=== PATIENT | female | born 2000 | race African-American/Black ===

== ENCOUNTER 2021-06-24 09:39 | Emergency (ER) | payer OTHER ==
[2021-06-24 10:27] LABS: Bilirubin Neg (Negative); Blood, Urine 250 (Negative); Glucose, Urine (Dipstick) Normal (Negative); Ketone, Urine Negative (Negative); Protein, Urine (Dipstick) 100 mg/dl (Neg-Trace); Urobilinogen Normal mg/dL (Less than 2)
[2021-06-24 10:29] LABS: Clarity Cloudy (Clear); Leukocyte Unable to Interpret (Negative); Nitrite Unable to Interpret (Negative)
[2021-06-24 10:32] LABS: Pregnancy Test - Urine (BHCG) Negative (Negative); Pregu Control Background? CLEAR/WHITE (CLR/WHITE); Pregu Control Bar Appear? YES (CONTROL BAR)
[2021-06-24 10:34] LABS: Bacteria/HPF Rare-Few HPF (None Seen); RBC/HPF Greater than 50 HPF (0-3); Squamous Epithelial 0-3 HPF (0-3); WBC/HPF 0-3 HPF (0-3)
[2021-06-26 03:23] LABS: Chlamydia by PCR Not Detected (NotDetected); GC by PCR Not Detected (NotDetected)
== END 2021-06-24 14:30 | disposition home or self-care (01) ==
LOC: CSHERS 09:39
DX: N76.0 Acute vaginitis (principal); B96.89 Other specified bacterial agents as the cause of diseases classified elsewhere; N92.0 Excessive and frequent menstruation with regular cycle; N94.6 Dysmenorrhea, unspecified
CPT/HCPCS: 76856; 81003; 81015; 81025; 87480; 87491; 87510; 87591; 87660

== ENCOUNTER 2021-07-07 20:12 | Emergency (ER) | payer OTHER ==
[2021-07-07 20:58] LABS: Bilirubin Neg (Negative); Blood, Urine Negative (Negative); Clarity Clear (Clear); Glucose, Urine (Dipstick) Normal (Negative); Ketone, Urine Negative (Negative); Leukocyte 500 (Negative); Nitrite Negative (Negative); Protein, Urine (Dipstick) Negative (Neg-Trace); Urobilinogen Normal mg/dL (Less than 2)
[2021-07-07 20:59] LABS: Pregnancy Test - Urine (BHCG) Negative (Negative); Pregu Control Background? CLEAR/WHITE (CLR/WHITE); Pregu Control Bar Appear? YES (CONTROL BAR)
[2021-07-07 21:06] LABS: Bacteria/HPF 3+ HPF (None Seen); RBC/HPF None Seen HPF (0-3); WBC/HPF 0-3 HPF (0-3); Yeast-Budding Rare HPF (None Seen)
[2021-07-07 21:07] LABS: Mucous/LPF 1+ LPF (<2+); Yeast-Hyphae 1+ HPF (None Seen)
== END 2021-07-07 21:22 | disposition home or self-care (01) ==
LOC: CSHERS 20:12
DX: B37.3 Candidiasis of vulva and vagina (principal); D64.9 Anemia, unspecified
CPT/HCPCS: 81003; 81015; 81025; 99284

== ENCOUNTER 2021-08-06 17:02 | Emergency (ER) | payer OTHER ==
[2021-08-07 17:14] LABS: SARS-CoV-2 PCR by NAA Not Detected (NotDetected)
== END 2021-08-06 20:18 | disposition home or self-care (01) ==
LOC: CSHERS 17:02
DX: J10.1 Influenza due to other identified influenza virus with other respiratory manifestations (principal); Z20.822 Contact with and (suspected) exposure to COVID-19
CPT/HCPCS: 87804; 99284; U0003; U0005